=== PATIENT | male | born 1950 | race Caucasian/White ===

== ENCOUNTER → 2019-03-03 | Outpatient (CLI) | payer MEDICARE ==
[~2019-03-03] MED LIST: ASPIRIN325 MG PO; ASPIRIN81 MG PO; CENTRUM MULTIV1 EACH PO; IOPAMIDOL 370 MG/ML 200 ML INFUS..BTL INJ ONE; LIVER CARE PO; METOPROLOL TART25 MG PO; NITROGLYCERIN0.4 MG SL; PLAVIX75 MG PO; SAW PALMETTO PO; SIMVASTATIN40 MG PO; SODIUM CHLORIDE 0.9% 50ML 50 ML ONE; VASOTEC5 MG PO
[2019-03-03 14:14] LABS: BLOOD UREA NITROGEN 10 mg/dL (7-26); BUN/CREATININE RATIO 11 (6-25); CREATININE, SERUM 0.87 mg/dL (0.72-1.25); EST GLOMERULAR FILTRATION RATE > 60 ML/MIN (60-)
--- NOTE | 2019-03-03 19:34 | Diagnostic Imaging Report ---
EXAMINATION: Multiphasic CT of the abdomen with contrast. TECHNIQUE: Spiral CT images of the abdomen were performed from the lung bases to the mid abdomen after the intravenous administration of 100 cc of Isovue 370. Coronal and sagittal reformatted images were obtained. COMPARISON: None. CLINICAL HISTORY:Reported history of right kidney lesion DISCUSSION: ABDOMEN/PELVIS: LOWER THORAX:Unremarkable. HEPATOBILIARY: Numerous hepatic hypodensities, the largest in the left hepatic lobe does not enhance and measures 18 mm consistent with a cyst. The remaining hypodensities do not show definite enhancement and also statistically likely represent cysts. No intra or extrahepatic biliary ductal dilation. GALLBLADDER: No radio-opaque stones or sludge. No wall thickening. SPLEEN: No splenomegaly. PANCREAS: No focal masses or ductal dilatation. ADRENALS: No adrenal nodules. KIDNEYS/URETERS: Multiple bilateral renal hypodensities measuring fluid density. None these hypodensities enhance within the limitations of the study. These are consistent with simple cysts. No hydronephrosis. No renal calculi. PELVIC ORGANS/BLADDER: The bladder is normal. PERITONEUM/RETROPERITONEUM: No free air or fluid. LYMPH NODES: No intra-abdominal, retroperitoneal, pelvic or inguinal lymphadenopathy. VESSELS: The celiac trunk,superior and inferior mesenteric and bilateral renal arteries are patent The portal, superior mesenteric and splenic veins are patent. Mild aneurysmal dilatation of the infrarenal abdominal aorta measuring up to 3.3 cm with mural thrombus. 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 GI TRACT: No distention or wall thickening. BONES AND SOFT TISSUE: No bony destructive lesions. No soft tissue abnormalities. Probable severe canal stenosis at L5-S1 two-view large posterior disc osteophyte. IMPRESSION: 1. No concerning enhancing renal or hepatic lesions. 2. 3.3 cm infrarenal abdominal aortic aneurysm. 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 Signed by: Layton Curtis MD on 03/03/2019 7:31 PM
== END ==
LOC: CT 13:23
PROVIDERS: ATTEND Urology
DX: D41.00 Neoplasm of uncertain behavior of unspecified kidney (principal)
CPT/HCPCS: 36415; 74170; 82565; 84520; Q9967

== ENCOUNTER → 2019-12-04 | Day surgery (SDC) | payer MEDICARE ==
[2019-12-02 10:24] LABS: BASOPHILS % 0.4 % (0.0-1.0); EOSINOPHILS # (AUTO) 0.1 (0.0-0.4); EOSINOPHILS % 1.3 % (0.0-6.0); HEMOGLOBIN 14.1 g/dL (14.0-18.0); LYMPHOCYTES # (AUTO) 1.5 (1.0-3.2); LYMPHOCYTES % 19.8 % (18.0-39.1); MEAN CORPUSCULAR HEMOGLOBIN 29.6 pg (28-32); MEAN CORPUSCULAR HGB CONC 33.6 g/dL (31-35); MEAN CORPUSCULAR VOLUME 88.1 fL (81-99); MONOCYTES # (AUTO) 0.7 (0.2-0.8); MONOCYTES % 9.4 % (4.4-11.3); NEUTROPHILS # (AUTO) 5.1 (2.1-6.9); PLATELET COUNT 207 x10e3/uL (140-360); RED BLOOD COUNT 4.77 x10e6/uL (4.3-5.7)
[~2019-12-04] MED LIST changes: +COQ-10100 MG PO; +CURCUMIN1 GM PO; +CYCLOBENZAPRINE10 MG PO; +EFFIENT10 MG PO; +FLOMAX0.4 MG PO; +GARLIPURE600 MG PO; -IOPAMIDOL 370 MG/ML 200 ML INFUS..BTL INJ ONE; +LIDOCAINE HCL 2% LOCAL INJ 5 ML SDV VIAL INJ ONE; +OMEGA DHA92 MG PO; +PROPOFOL IV EMULSION 10 MG/ML 50 ML VIAL ONE; -SODIUM CHLORIDE 0.9% 50ML 50 ML ONE; +VITAMIN D32400 UNIT/; +VITAMIN D35000 UNI2 PO; +VITAMIN E400 UNI1 PO; +ZINC SULFATE220 M1 PO
--- OUTSIDE RECORDS SUMMARY | 2019-12-04 05:58 | XMS REPORT | Summary of Care ---
Author Author [facility] Organization [facility] Address Unknown Phone Unavailable Care Team Providers Care Heating Equipment Repairer Name Role Phone Madeline Yi MD PCP Reason for Referral * Radiology Services (Routine) Referred By Contact Referred To Contact Status Reason Specialty Diagnoses / Procedures Angelito Griffiths MD [address] [place] [address] Pending Cardiology Diagnoses Undiagnosed cardiac murmurs P rocedures ECHO, COMPLETE Reason for Visit * Reason Comments Coronary Artery Disease Cardiology Follow-up * Consult, Test & Treat (Routine) Referred By Contact Referred To Contact Status Reason Specialty Diagnoses / Procedures [place] Cardio [address] [facility] [address] [facility] 6th [address], [address] [place] [address] Angelito Griffiths MD [address] [place] [address] Incomplete Cardiovascular Diagnoses Disease / Follow up from Cardiology stint placement P rocedures CARDIOLOGY ESTABLISHED OV Encounter Details Care Team Description Date Type Department Angelito Griffiths MD [address] [place] [address] [phone] Coronary Artery Disease; Cardiology Follow-up 11/21/2019 Office Visit [facility] Cardiology [address] [facility] 6th [address], [address] [place] [address] Allergies Comments Active Allergy Reactions Severity Noted Date Seasonal 12/20/2018 documented as of this encounter (statuses as of 11/21/2019) Medications End Date Status Medication Sig Dispensed Refills Start Date Active Tamsulosin HCl 0.4 MG Take 0.4 mg 0 CAPS by mouth. 5 Active cyclobenzaprine Take 10 mg by 0 (FLEXERIL) 10 MG tablet mouth daily. Active Vit Take by 0 E-Grdaivjkektaykg-Pkoy mouth. Hip (VITAMIN C & D3/CATARINO HIPS) 500-1000-20 MG-UNIT-MG CAPS Active Probiotic Product (ALIGN Take by 0 OR) mouth. Active TURMERIC CURCUMIN OR Take by 0 mouth. Active Vitamin E 1000 units CAPS Take by 0 mouth. Active Prasugrel HCl (EFFIENT) Take 10 mg by 90 Tab 3 10 MG TABS mouth daily. 9 Active Calcium Carbonate Take by 0 (CALCIUM 600) 600 MG TABS mouth. Active Coenzyme Q10 (CO Q-10) Take by 0 200 MG CAPS mouth. Active Zinc 50 MG TABS Take by 0 mouth. Active atorvastatin (LIPITOR) 40 Take 1 Tab by 90 Tab 3 MG tabletIndications: mouth daily. 0 Coronary artery disease involving [place] coronary artery of [place] heart without angina pectoris, Essential hypertension, CAD (coronary artery disease) Active aspirin 81 MG Take 1 Tab by 100 Each 3 tabletIndications: mouth daily. 0 Essential hypertension, CAD (coronary artery disease), Coronary artery disease involving [place] coronary artery of [place] heart without angina pectoris 11/21/2019 Discontinued (*Therapy completed) aspirin 81 MG Take 81 mg by 0 tabletIndications: mouth daily. Essential hypertension, CAD (coronary artery disease) 11/21/2019 Discontinued (Reorder) atorvastatin (LIPITOR) 40 Take 1 Tab by 90 Tab 3 MG tablet mouth daily. 8 documented as of this encounter (statuses as of 11/21/2019) Active Problems Problem Noted Date PAD (peripheral artery disease) (HCCode) 06/22/2015 Cerebrovascular disease 05/18/2015 Overview: 1) s/p Carotid angiogram 01/2014: 100 % occlusion of the LICA at the syphon level. 50 % stenosis at the ostium of the LICA and KIMBERLY 2) 100% Occlusion of the Right common iliac. Multiple stenosis of the left common iliac artery by angiogram from 01/2014 CAD (coronary artery disease) 05/18/2015 Overview: 1) s/p Coronary angiogram 02/03/14: s/p PTCA/stent x 2 (2.25 x 30 and 2.25 x 18 mm RESOLUTE stents). HLD (hyperlipidemia) 05/18/2015 S/P hernia repair 05/18/2015 Former smoker 05/18/2015 documented as of this encounter (statuses as of 11/21/2019) Social History Date Tobacco Use Types Packs/Day Years Used Former Smoker Smokeless Tobacco: Never Used Drinks/Week oz/Week Comments Alcohol Use No Sex Assigned at Date Recorded Not on file Industry Job Start Date Occupation Not on file Not on file Not on file Travel End Travel History Travel Start No recent travel history available. documented as of this encounter Last Filed Vital Signs Reading Time Taken Comments Vital Sign 181/78 11/21/2019 9:46 AM FIREWALL ADMINISTRATOR Blood Pressure 73 11/21/2019 9:46 AM FIREWALL ADMINISTRATOR Pulse - - Temperature 16 11/21/2019 9:46 AM FIREWALL ADMINISTRATOR Respiratory Rate 97% 11/21/2019 9:46 AM FIREWALL ADMINISTRATOR Oxygen Saturation - - Inhaled Oxygen Concentration 91.6 kg (202 lb) 11/21/2019 9:46 AM FIREWALL ADMINISTRATOR Weight 188 cm (6' 2") 11/21/2019 9:46 AM FIREWALL ADMINISTRATOR Height 25.94 11/21/2019 9:46 AM FIREWALL ADMINISTRATOR Body Mass Index documented in this encounter Patient Instructions * Patient Instructions* Jn Valdes [facility] - 11/21/2019 9:40 AM FIREWALL ADMINISTRATOR 1. CAD/HLD - Restart Atorvastatin 40mg nightly - Restart taking ASA daily - Participate in moderate intensity exercises such as walking, swimming, aerobic s, etc at least 3-4 times/week - Diet low in fat, carbohydrates, starches, fat. Increase consumption of fruit, vegetables, grains, baked meat, etc.. 2. HTN - Continue to monitor BP at home. To keep a log and bring to clinic during next office visit - Low sodium diet. Less than 1,500mg/1.5grams of sodium daily - Engage in relaxation techniques: Meditation, Yoga 3. Cardiac Murmur - Echocardiogram 4. Follow up in 3 months - 1 week before next appointment to have labs drawn (fasting): CBC, BMP, Lipid p mac, Hepatic function screen WALL ADMINISTRATOR documented in this encounter Progress Notes * Jn Valdes, [facility] - 11/21/2019 9:40 AM FIREWALL ADMINISTRATOR Date: November 21, 2019 Patient Name: Real Gamble : 1950 Problem List: #Subclavian stenosis S/p MOBILE PARAMEDICAL EXAMINER stent to the left subclavian x 2 on 02/03/2019 ASA and effient Statin #CAD s/p PCI on the RCA ASA and effient Statin #PVD s/p MOBILE PARAMEDICAL EXAMINER/Stent of left common iliac on 05/27/2015 S/p right-left femoro-femoral bypass on 06/28/[address] Smith #HTN #HLD #Carotid artery disease S/p Right CEA Chief Complaint: Chief Complaint Patient presents with Coronary Artery Disease Cardiology Follow-up History of Present Illness: Real Gamble is a 69 y.o. male patient with a history of CAD s/p PCI on the RCA, PVD s/p MOBILE PARAMEDICAL EXAMINER/Stent of left common iliac on 05-27-15 and right-left femoro-femoral bypass on 06/28/[address] Smith. He is s/p MOBILE PARAMEDICAL EXAMINER s tent to the left subclavian x 2 on 02/03/2019. Presents to clinic today for his follow up. Per patient he has stopped taking his statin and ASA due to concerns of long term care pharmacist use. He denies any side-effects from medications. No active complai nts of chest pain, SOB, dizziness, palpitations, syncope/near syncopal episodes. Current Medications: Current Outpatient Medications Medication Sig Dispense Refill atorvastatin (LIPITOR) 40 MG tablet Take 1 Tab by mouth daily. (Patient taki ng differently: Take 20 mg by mouth daily.) 90 Tab 3 Calcium Carbonate (CALCIUM 600) 600 MG TABS Take by mouth. Coenzyme Q10 (CO Q-10) 200 MG CAPS Take by mouth. cyclobenzaprine (FLEXERIL) 10 MG tablet Take 10 mg by mouth daily. Prasugrel HCl (EFFIENT) 10 MG TABS Take 10 mg by mouth daily. 90 Tab 3 Probiotic Product (ALIGN OR) Take by mouth. Tamsulosin HCl 0.4 MG CAPS Take 0.4 mg by mouth. TURMERIC CURCUMIN OR Take by mouth. Vit H-Gbnplacnccbpjuk-Vnlk Hip (VITAMIN C & D3/CATARINO HIPS) 500-1000-20 MG-UNIT-MG CAPS Take by mouth. Vitamin E 1000 units CAPS Take by mouth. Zinc 50 MG TABS Take by mouth. No current facility-administered medications for this visit. Allergies: Allergies Allergen Reactions Seasonal Past Medical History: Cerebrovascular Disease PVD Cad (Coronary Artery Disease) Hld (Hyperlipidemia) Carotid Artery Stenosis Past Surgical History: Hernia Repair Carotid angiogram 01/2014: 100 % occlusion of the LICA at the syphon level. 50 % stenosis at the ostium of the LICA and KIMBERLY 100% Occlusion of the Right common iliac. Multiple stenosis of the left common i liac artery by angiogram from 01/2014 Left Common Iliac with 8 x 39mm Alma and 9 x 29mm Alma stents 05/27/15 Coronary angiogram 02/03/14: s/p PTCA/stent RCA x 2 (2.25 x 30 and 2.25 x 18 mm R ESOLUTE stents). Right-Left Femoro-femoral bypass with Hemashield Gold 7mm x 30cm Vascular graft 06-28-2015 Dr. Smith Social History: Social History Tobacco Use Smoking status: Former Smoker Smokeless tobacco: Never Used Substance Use Topics Alcohol use: No Family History: No family history on file. Review of Systems: Constitutional: Negative. HENT: Negative. Eyes: Negative. Respiratory: Negative for shortness of breath. Cardiovascular: Negative Gastrointestinal: Negative for abdominal pain. Genitourinary: Negative. Musculoskeletal: Negative. Skin: Negative. Neurological: Negative. Endo/Heme/Allergies: Negative. Psychiatric/Behavioral: Negative. EXAMINATION BP 181/78 | Pulse 73 | Resp 16 | Ht 6' 2" (1.88 m) | Wt 202 lb (91.6 kg) | SpO2 97% | BMI 25.94 kg/m General appearance: alert, cooperative, no distress, appears stated age Head: Normocephalic, without obvious abnormality, atraumatic Eyes: conjunctivae/corneas clear. PERRL, EOM's intact. Fundi benign Neck: supple, symmetrical, trachea midline, no adenopathy, thyroid: not enlarg ed, symmetric, no tenderness/mass/nodules, no carotid bruit and no JVD Lungs: clear to auscultation bilaterally Heart: Cardiac Murmur. Regular rate and rhythm, S1, S2 normal, systolic murmur at the apex Abdomen: Obese, soft, non-tender. Bowel sounds normal. No masses, No organomeg zaire Extremities: extremities normal, atraumatic, no cyanosis or edema Pulses: 2+ and symmetric Skin: Skin color, texture, turgor normal. No rashes or lesions Neurologic: Normal Laboratory Testing: Ref. Range 06/29/2015 04:30 WBC Latest Range: 4.0-10.0 10^3/L 8.7 RBC Latest Range: 4.20-5.80 10^6/L 3.43 (L) nRBC Latest Range: 0-0 /100 WBC 0 Hemoglobin Latest Range: 13.0-16.8 GM/DL 10.7 (L) Hematocrit Latest Range: 40.0-50.0 % 30.6 (L) MCV Latest Range: 82.0-98.0 fL 89.1 MCH Latest Range: 27.0-33.0 pg 31.1 MCHC Latest Range: 32.0-36.0 GM/DL 34.9 RDW Latest Range: 10.3-14.2 % 11.2 Platelets Latest Range: 150-430 K/CU MM 173 MPV Latest Range: 6.5-10.5 fL 7.1 % Neutros No range found 77 % Lymphs No range found 12 % Monos No range found 11 % Eos No range found 0 % Baso No range found 0 # Neutros Latest Range: 1.80-8.00 K/L 6.65 # Lymphs Latest Range: 1.48-4.50 K/L 1.03 (L) # Monos Latest Range: 0.00-1.30 K/L 0.98 # Eos Latest Range: 0.00-0.50 K/L 0.01 # Baso Latest Range: 0.00-0.20 K/L 0.02 Sodium Latest Range: 136-145 meq/L 133 (L) Potassium Latest Range: 3.5-5.1 meq/L 3.7 Chloride Latest Range: 98-107 meq/L 108 (H) CO2 Latest Range: 22-29 meq/L 20 (L) BUN Latest Range: 7-21 mg/dL 8 Creatinine Latest Range: 0.57-1.25 mg/dL 0.65 EGFR No range found 123 Glucose Latest Range: 70-105 mg/dL 117 (H) Calcium Latest Range: 8.4-10.2 mg/dL 7.2 (L) Echocardiogram: TTE 02/15/2018 SUMMARY: ++++++++++++++++++++++++++++++++++++ Left ventricular chamber size (by PSLAX dimension) is normal. No evidence of LV hypertrophy. The following segment(s) appear hypokinetic: Basal inferolateral/inferior segments Estimated LVEF by qualitative assessment is lower limits of normal (50-55%). In comparison with the prior exam on 2014 the following changes are noted: LVEF has decreased. FINDINGS: ++++++++++++++++++++++++++++++++++++ Rhythm/BP: Regular sinus rhythm during the exam. LV: Global LV systolic function is lower limits of normal. No evidence of LV hypertrophy. Left ventricular chamber size (by PSLAX dimension) is normal. Grade 1 diastolic dysfunction (impaired relaxation and low-normal LA pressure). Estimated LVEF by qualitative assessment is lower limits of normal (50-55%). The following segment(s) appear hypokinetic: Basal inferolateral/inferior segments The other segments contract normally. LA: LA size is normal. RV: The right ventricular chamber size and systolic function are within normal limits. RA: RA cavity size is normal. AV: Mild AoV cusp thickening. No evidence of aortic regurgitation. No evidence of aortic stenosis. MV: Mild MV leaflet thickening. A trace of mitral regurgitation. Mild mitral annular calcification. TV: Normal TV structure and function. A trace of tricuspid regurgitation. Unable to estimate peak systolic PA pressure; inadequate TR velocity signal. PV: Normal PV structure and function. A trace of pulmonary regurgitation. AO: Aortic root size (Sinus of Valsalva diameter) is normal. Proximal ascending aorta size is borderline dilated at 3.5 cm. Pericard: No pericardial effusion is visualized. Systemic Veins: The inferior vena cava size is normal. The estimated RA pressure by IVC dynamics 0-5 mmHg. Comparison: In comparison with the prior exam on 2014 the following changes are noted: LVEF has decreased. Echocardiogram: 05/18/2015 ++++++++++++++++++++++++++++++++++++ SUMMARY: ++++++++++++++++++++++++++++++++++++ Normal chamber size, structure and function No significant valvular abnormality Insufficient amount of TR to allow estimation of PA pressure No prior report for comparison. ++++++++++++++++++++++++++++++++++++ FINDINGS: ++++++++++++++++++++++++++++++++++++ Qual: Fair LV: LV size is normal. Normal LV wall thickness. Sigmoid septum. LV function is normal. Overall wall motion is normal. Estimated EF is 60-65% RV: RV size is normal. RV function is normal. RV wall motion is normal. LA: LA size is normal. RA: RA size is normal. WES: No pericardial effusion seen. AO: Aorta is normal in size. AV: The aortic valve appears normal. MV: Mitral valve appears normal. PV: Not seen. A trace of pulmonic regurgitation. TV: No structural abnormalities noted. Insufficient amount of TR to allow estimation of PA pressure Chandra: LV relaxation is impaired. LV filling pressure is indeterminate (E/e' in 8-12 range). Other: Estimated mean RA pressure is 0-5 mmHg. Stress Testing: PET rest and stress 04/04/2018 IMAGING FINDINGS: Study quality is good. Images obtained after rest and stress injections show normal LV activity. LV and RV volumes appear normal. Gated images obtained at rest and with stress show normal LV wall motion and thickening. LVEF at rest is 52%. LVEF at stress is 66%. IMPRESSION: 1. Normal study. 2. Appropriate pharmacologic stress. 3. Normal myocardial perfusion. 4. Normal resting LV function. No deterioration of function is noted with pharmacologic stress. 5. Normal extracardiac tracer distribution. 6. No previous [facility] study for comparison. NONINVASIVE RISK STRATIFICATION: The above findings are considered low risk (<1% annual mortality rate) based on the following criterion: - Normal or small myocardial perfusion defect at rest or with stress (JACC. 2012;59(9):857-36.) Signed: Manuel Kang MD Report Verified Date/Time: 04/04/2018 15:45:22 Reading Location: [facility] 3rd Flr [id number] [facility] Reading Room 06/2017 Normal myocardial perfusion Cardiac Cath Coronary Angiogram/Abdominal Aortogram 05/27/2015 Findings: Left Main - No angiographic CAD Anterior Descending - Luminal irregularities Cicumflex/OM Branches - Luminal irregularities Right Coronary - Dominant vessel with 30% ostial stenosis, patent prior stent in pRCA Abdominal aortogram revealing an occluded R common iliac artery at the ostium an d a 70% stenosis of the L common iliac artery MOBILE PARAMEDICAL EXAMINER/stent of the L common iliac with a 8 x 39mm Alma and 9 x 29mm Alma obinna nts. Other Testing/Imagning: MOBILE PARAMEDICAL EXAMINER stent of the subclavian 02/03/2019: Procedure Performed: Procedure(s): - Left Subclavian angiography. - IVUS of the left subclavian. - s/p MOBILE PARAMEDICAL EXAMINER/Stent to the proximal left subclavian and distal left subclavian arter y. CTA neck 11/06/2018: 1. Complete occlusion of the left carotid bulb, cervical and intracranial internal carotid arteries. 2. Mild narrowing of the left common carotid artery due to atherosclerotic changes. 3. Complete occlusion of the origin and V1 segments of the right vertebral artery. 4. Focal narrowing and possible web of the left subclavian artery distal to the origin of the left vertebral artery as detailed above. 5. Postoperative changes from prior right carotid endarterectomy with patent vessel. Signed by: Dr. Kylie Hernadez M.D. on 11/07/2018 7:25 AM Carotid doppler 02/15/2018 DUPLEX FINDINGS: Right- There is mild intimal thickening in the distal common carotid artery. The carotid endarterectomy site, internal and external carotid arteries are clear. Color flow is mildly disturbed and velocities are mildly elevated throughout the internal carotid artery. Left- There is heterogenous plaque in the mid to distal common carotid artery. T here hard and calcified plaque in the bulb extending into the internal carotid a rtery with absent color flow and Doppler signals throughout the cervical interna l carotid artery. There is minimal hard plaque in the proximal external carotid artery with normal color flow and Doppler signals. IMPRESSION: -Satisfactory appearance of the right carotid endarterectomy site and internal c arotid artery with no evidence of occlusive disease. Mildly elevated velocities throughout the right internal carotid artery are likely due to compensatory flow in the setting of a chronically occluded left internal carotid artery. -Occluded left internal carotid artery. -Non-stenotic plaque in the left common carotid artery. - Non-stenotic left external carotid artery. - Stenotic left subclavian artery with post-stenotic turbulence noted. Brachial arm pressures demonstrate a difference of 26 mmHg R>L. Arterial doppler BLE 02/15/2018 Duplex Findings: RIGHT- The proximal anastomosis of the right to left femoral to femoral arterial bypass graft is well visualized and is widely patent demonstrating normal color flow and triphasic Doppler waveforms. There is some calcification of the distal common femoral with triphasic Doppler waveforms present. The superficial femor al artery to proximal popliteal artery demonstrates smooth intimal lining with n ormal color flow and triphasic Doppler waveforms. There is non-stenotic hard nita que in the mid popliteal artery with normal color flow and triphasic Doppler wav eforms. There is three-vessel runoff below the knee with normal color flow and t riphasic to biphasic flow throughout the non-calcified arteries.The dorsalis ped is artery is patent as well demonstrating normal color flow and triphasic Dopple r waveforms. LEFT- The distal right to left femoral arterial bypass graft is well visualized and is widely patent demonstrating normal color flow and triphasic Doppler wavef orms. The distal anastomosis to the distal RANGE RIDER/proximal SFA demonstrates some co kristi flow disturbance and elevated velocities of 214 cm/sec, however, Doppler sig nals in the proximal superficial femoral and profunda femoral arteries are bipha sic with normal velocities. Doppler waveforms remain biphasic/near triphasic thr oughout the superficial femoral, popliteal and tibial arteries. There is three-v essel run-off below the knee with a patent dorsalis pedis artery. There is a sma ll focal hard plaque in the mid superficial femoral artery, other smooth intimal lining noted in the remaining visualized arteries. IMPRESSION: 1. Patent right to left femoral to femoral arterial bypass graft with color flow disturbance and elevated velocities of 214 cm/sec at the distal anastomosis (le ft distal common femoral/proximal superificial femoral artery). This appears non -hemodynamically insignificant as distal Doppler waveforms are biphasic to near triphasic. 2. Non-stenotic mild plaque of the right popliteal and left mid superficial femo ral arteries. 3. Bilateral ankle/brachial and toe/brachial indices are normal. Cerebral Angiogram 06-26-15 FINDINGS: The selective right common carotid arteriogram with biplane imaging over the common carotid bifurcation demonstrates 60% stenosis of the right internal carotid artery (NASCET) as part of an approximately 4 cm atherosclerotic plaque originating at the bifurcation of the common carotid artery. There is no angiographic evidence of dissection, aneurysm, or other vascular abnormality. The selective right common carotid arteriogram with biplane imaging over the intracranial carotid circulation demonstrates antegrade flow into the ipsilateral anterior cerebral artery, middle cerebral artery, and with a large anterior communicating artery leading to opacification of the contralateral anterior cerebral artery and middle cerebral artery distribution. The right posterior communicating artery is not visualized. There is a focal stenotic area corresponding to the contralateral left proximal A1 or SANJUANITA-MCA bifurcation. There is no angiographic evidence of aneurysm, vascular malformation, vasculitis, major branch occlusion, dural arteriovenous fistula, or other vascular abnormality. The venous system is within normal limits. The selective right subclavian arteriogram with AP imaging over the chest and proximal branching arteries and with biplane imaging over the cervical and vertebrobasilar circulation demonstrates complete occlusion of the proximal left vertebral artery at the origin with distal reconstitution at the V2 segment from a prominent cervical muscular collateral. The selective left common carotid arteriogram with biplane imaging over the common carotid bifurcation demonstrates complete occlusion of the left internal carotid artery at the common carotid bifurcation with a smooth, rounded cap consistent with chronic occlusion. The left external carotid artery appears to branch normally. There is no angiographic evidence of dissection, aneurysm, or other vascular abnormality. The selective left common carotid arteriogram with biplane imaging over the intracranial carotid circulation demonstrates reconstitution of the intracranial left internal carotid artery via external carotid artery to ophthalmic artery collateralization but with a paucity of opacification of the distal internal carotid artery circulation. There is no angiographic evidence of aneurysm, vascular malformation, vasculitis, dural arteriovenous fistula, or other vascular abnormality. The venous system is within normal limits. The selective left vertebral arteriogram demonstrates normal antegrade flow with basilar artery terminating in bilateral posterior cerebral and superior cerebellar arteries. There is a large left posterior communicating artery with opacification of the left distal middle cerebral artery distribution. There is no angiographic evidence of aneurysm, vascular malformation, vasculitis, major branch occlusion, significant focal stenosis, dural arteriovenous fistula, or other vascular abnormality. SUMMARY: 1. Multiple vessels with severe atherosclerotic disease resulting in the following: Complete occlusion of the cervical left internal carotid and right proximal vertebral artery 60% stenosis of the right internal carotid artery (NASCET) 40% stenosis of the left vertebral artery origin 2. Left cerebral hemisphere perfusion appears to rely on flow from the contralateral internal carotid artery via a large anterior communicating artery along with the left vertebral artery via a large posterior communicating artery. IMPRESSION/PLAN: 1. CAD/HLD - Restart Atorvastatin 40mg nightly - Restart taking ASA daily - Participate in moderate intensity exercises such as walking, swimming, aerobic s, etc at least 3-4 times/week - Diet low in fat, carbohydrates, starches, fat. Increase consumption of fruit, vegetables, grains, baked meat, etc.. 2. HTN - Continue to monitor BP at home. To keep a log and bring to clinic during next office visit - Low sodium diet. Less than 1,500mg/1.5grams of sodium daily - Engage in relaxation techniques: Meditation, Yoga 3. Cardiac Murmur - Echocardiogram 4. Follow up in 3 months - 1 week before next appointment to have labs drawn (fasting): CBC, BMP, Lipid p mac, Hepatic function screen Jn Valdes, MSN, FISH HATCHERY MANAGER, GRANTS AND CONTRACTS ASSISTANT-C Nurse Practitioner/Instructor Office: Nurse Practitioner to Dr. Angelito Griffiths MD Interventional Cardiology and Structural Heart Disease [facility] WALL ADMINISTRATOR documented in this encounter Plan of Treatment Date/Time Name Type Priority Associated Diagnoses 11/21/2019 9:50 AM FIREWALL ADMINISTRATOR ELECTROCARDIOGRAM ECG Routine Coronary artery disease COMPLETE involving [place] coronary artery of [place] heart without angina pectoris Order Schedule Name Type Priority Associated Diagnoses Expected: 11/21/2019, Expires: 05/21/2020 ECHO, COMPLETE Cardiac Routine Undiagnosed cardiac Services murmurs Ordered: 11/21/2019 CBC W/AUTO DIFF WITH Lab Routine Coronary artery disease PLATELETS involving [place] coronary artery of [place] heart without angina pectoris Essential hypertension CAD (coronary artery disease) Ordered: 11/21/2019 BASIC METABOLIC PANEL Lab Routine Coronary artery disease involving [place] coronary artery of [place] heart without angina pectoris Essential hypertension CAD (coronary artery disease) Ordered: 11/21/2019 LIPID PANEL Lab Routine Coronary artery disease involving [place] coronary artery of [place] heart without angina pectoris Essential hypertension CAD (coronary artery disease) Ordered: 11/21/2019 HEPATIC FUNCTION PANEL Lab Routine Coronary artery disease involving [place] coronary artery of [place] heart without angina pectoris Essential hypertension CAD (coronary artery disease) Health Maintenance Due Date Last Done Comments COLON CANCER SCREENIN1948 COLONOSCOPY TETANUS SHOT (ADULT) 1963 BMI FOLLOW UP PLAN 1966 HEPATITIS C SCREENING 1966 AAA Screen 2013 FALL SCREEN 2013 PNEUMOVAX >=65 (PPSV23) 2013 PREVNAR >=65 (PCV13) 2013 FLU VACCINE > 6 MONTHS 04/24/2019 MEDICARE IPPE (WELCOME TO 11/20/2019 MEDICARE) documented as of this encounter Procedures Comments Procedure Name Priority Date/Time Associated Diagnosis ELECTROCARDIOGRAM Routine 11/21/2019 Coronary artery disease COMPLETE 9:50 AM FIREWALL ADMINISTRATOR involving [place] coronary artery of [place] heart without angina pectoris documented in this encounter Results Not on filedocumented in this encounter Visit Diagnoses Diagnosis Coronary artery disease involving [place] coronary artery of [place] heart without angina pectoris - Primary Essential hypertension Unspecified essential hypertension CAD (coronary artery disease) Coronary atherosclerosis of unspecified type of vessel, [place] or graft Undiagnosed cardiac murmurs documented in this encounter Insurance Type Payer Benefit Subscriber ID Effective Phone Address Plan / Dates Group Medicare [employer] AARP MCR xxxxxxxxx 2019- [address] Present [address] [facility] [place] [address] documented as of this encounter
--- OUTSIDE RECORDS SUMMARY | 2019-12-04 05:58 | XMS REPORT ---
Author [facility] Address Unknown Phone Unavailable Care Team Providers Care Social And Political Studies Professor Name Role Phone SHEILA MAURO Unavailable Unavailable CHRISTINE JULIAN Unavailable Unavailable Payers Payer Name Policy Type Policy Number Effective Date Expiration Date Problems This patient has no known problems. Allergies, Adverse Reactions, Alerts Allergy Name Allergy Type Status Severity Reaction(s) Onset Date Inactive Date Treating Clinician Comments No Known Allergies DA Active U 2017-06-27 00:00:00 Medications This patient has no known medications. Results Test Description Test Time Test Comments Text Results Atomic Results Result Comments CT ABDOMEN WOW 2019-03-03 19:25:00 [place] [address] Patient Name: JUAN LUIS CONTEH MR #: [id number] : 1950 Age/Sex: 68/M Req #: [id number] Adm Physician: Ordered by: SHEILA MAURO MD Report #: [id number] Location: [place] Room/Bed: Procedure: [id number] CT/CT ABDOMEN WOW Exam Date: 03/03/19 Exam Time: 1440 REPORT STATUS: Signed EXAMINATION: Multiphasic CT of the abdomen with contrast. TECHNIQUE: Spiral CT images of the abdomen were performed from the lung bases to the mid abdomen after the intravenous administration of 100 cc of Isovue 370. Coronal and sagittal reformatted images were obtained. COMPARISON: None. CLINICAL HISTORY:Reported history of right kidney lesion DISCUSSION: ABDOMEN/PELVIS: LOWER THORAX:Unremarkable. HEPATOBILIARY: Numerous hepatic hypodensities, the largest in the left hepatic lobe does not enhance and measures 18 mm consistent with a cyst. The remaining hypodensities do not show definite enhancement and also statistically likely represent cysts. No intra or extrahepatic biliary ductal dilation. GALLBLADDER: No radio-opaque stones or sludge. No wall thickening. SPLEEN: No splenomegaly. PANCREAS: No focal masses or ductal dilatation. ADRENALS: No adrenal nodules. KIDNEYS/URETERS: Multiple bilateral renal hypodensities measuring fluid density. None these hypodensities enhance within the limitations of the study. These are consistent with simple cysts. No hydronephrosis. No renal calculi. PELVIC ORGANS/BLADDER: The bladder is normal. PERITONEUM/RETROPERITONEUM: No free air or fluid. LYMPH NODES: No intra-abdominal, retroperitoneal, pelvic or inguinal lymphadenopathy. VESSELS: The celiac trunk,superior and inferior mesenteric and bilateral renal arteries are patent The portal, superior mesenteric and splenic veins are patent. Mild aneurysmal dilatation of the infrarenal abdominal aorta measuring up to 3.3 cm with mural thrombus. 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 GI TRACT: No distention or wall thickening. BONES AND SOFT TISSUE: No bony destructive lesions. No soft tissue abnormalities. Probable severe canal stenosis at L5-S1 two-view large posterior disc osteophyte. IMPRESSION: 1. No concerning enhancing renal or hepatic lesions. 2. 3.3 cm infrarenal abdominal aortic aneurysm. 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 Signed by: Layton Curtis MD on 03/03/2019 7:31 PM Dictated By: REESE CURTIS MD 30 Transcribed By: ARGENIS on 03/03/191930 COPY TO: SHEILA MAURO MD BASIC METABOLIC PANEL 2019-02-04 05:47:00 SODIUM (BEAKER) (test amry=938) 136 meq/L 136-145 POTASSIUM (BEAKER) (test ybis=560) 4.4 meq/L 3.5-5.1 CHLORIDE (BEAKER) (test wurp=373) 104 meq/L 98-107 CO2 (BEAKER) (test cpxw=833) 28 meq/L 22-29 BLOOD UREA NITROGEN (BEAKER) (test gadu=919) 13 mg/dL 7-21 CREATININE (BEAKER) (test bkqj=851) 0.93 mg/dL 0.57-1.25 GLUCOSE RANDOM (BEAKER) (test wgli=468) 119 mg/dL 70-105 CALCIUM (BEAKER) (test gfjq=740) 8.8 mg/dL 8.4-10.2 EGFR (BEAKER) (test ijlk=6119) 80 mL/min/1.73 sq m ESTIMATED GFR IS NOT ACCURATE CREATININE CLEARANCE IN PREDICTING GLOMERULAR FILTRATION RATE. ESTIMATED GFR IS NOT APPLICABLE FOR DIALYSIS PATIENTS. CBC (HEMOGRAM ONLY)2019-02-04 05:16:00* Test Item Value Reference Range Comments WHITE BLOOD CELL COUNT (BEAKER) (test mzyz=731) 9.6 K/ L 3.5-10.5 RED BLOOD CELL COUNT (BEAKER) (test cwpm=136) 4.11 M/ L 4.63-6.08 HEMOGLOBIN (BEAKER) (test fbqz=890) 12.1 GM/DL 13.7-17.5 HEMATOCRIT (BEAKER) (test sjnw=467) 37.1 % 40.1-51.0 MEAN CORPUSCULAR VOLUME (BEAKER) (test yrtc=428) 90.3 fL 79.0-92.2 MEAN CORPUSCULAR HEMOGLOBIN (BEAKER) (test kwsi=409) 29.4 pg 25.7-32.2 MEAN CORPUSCULAR HEMOGLOBIN CONC (BEAKER) (test arsa=772) 32.6 GM/DL 32.3-36.5 RED CELL DISTRIBUTION WIDTH (BEAKER) (test kefn=545) 12.2 % 11.6-14.4 PLATELET COUNT (BEAKER) (test shcw=950) 178 K/CU MM 150-450 MEAN PLATELET VOLUME (BEAKER) (test jcnj=270) 10.2 fL 9.4-12.4 NUCLEATED RED BLOOD CELLS (BEAKER) (test jxcy=223) 0 /100 WBC 0-0 [id number] 18:13:00* Test Item Value Reference Range Comments ACTIVATED CLOTTING TIME (BEAKER) (test mbuy=103) 136 sec TESTED AT [facility] [address] [facility] [address] [id number] 12:53:00* Test Item Value Reference Range Comments ACTIVATED CLOTTING TIME (BEAKER) (test krnk=697) 307 sec TESTED AT [place] [id number] [facility] [address] BASIC METABOLIC [id number] 08:00:00* Test Item Value Reference Range Comments SODIUM (BEAKER) (test bluv=102) 140 meq/L 136-145 POTASSIUM (BEAKER) (test kkym=900) 4.8 meq/L 3.5-5.1 CHLORIDE (BEAKER) (test szgu=527) 105 meq/L 98-107 CO2 (BEAKER) (test tupq=260) 30 meq/L 22-29 BLOOD UREA NITROGEN (BEAKER) (test wkmp=234) 11 mg/dL 7-21 CREATININE (BEAKER) (test tfgp=009) 0.90 mg/dL 0.57-1.25 GLUCOSE RANDOM (BEAKER) (test qwpy=348) 112 mg/dL 70-105 CALCIUM (BEAKER) (test lqbt=602) 9.9 mg/dL 8.4-10.2 EGFR (BEAKER) (test hslc=6255) 83 mL/min/1.73 sq m ESTIMATED GFR IS NOT ACCURATE CREATININE CLEARANCE IN PREDICTING GLOMERULAR FILTRATION RATE. ESTIMATED GFR IS NOT APPLICABLE FOR DIALYSIS PATIENTS. PROTHROMBIN TIME/[id number] 07:50:00* Test Item Value Reference Range Comments PROTIME (BEAKER) (test wiwc=696) 12.8 seconds 11.7-14.7 INR (BEAKER) (test mmsu=648) 1.0 <=5.9 RECOMMENDED COUMADIN/WARFARIN INR THERAPY RANGESSTANDARD DOSE: 2.0 - 3.0 Inclu ziggy: PROPHYLAXIS for venous thrombosis, systemic embolization; TREATMENT for ada ous thrombosis and/or pulmonary embolus.HIGH RISK: Target INR is 2.5-3.5 for pat ients with mechanical heart valves.Within 24 hours, if on CoumadinCBC (HEMOGRAM ONLY)2019-02-03 07:43:00* Test Item Value Reference Range Comments WHITE BLOOD CELL COUNT (BEAKER) (test obyv=723) 6.3 K/ L 3.5-10.5 RED BLOOD CELL COUNT (BEAKER) (test qsjr=483) 4.38 M/ L 4.63-6.08 HEMOGLOBIN (BEAKER) (test qrbs=036) 12.9 GM/DL 13.7-17.5 HEMATOCRIT (BEAKER) (test xhqi=862) 39.5 % 40.1-51.0 MEAN CORPUSCULAR VOLUME (BEAKER) (test bwlr=593) 90.2 fL 79.0-92.2 MEAN CORPUSCULAR HEMOGLOBIN (BEAKER) (test nzun=389) 29.5 pg 25.7-32.2 MEAN CORPUSCULAR HEMOGLOBIN CONC (BEAKER) (test eqxy=881) 32.7 GM/DL 32.3-36.5 RED CELL DISTRIBUTION WIDTH (BEAKER) (test filt=057) 12.3 % 11.6-14.4 PLATELET COUNT (BEAKER) (test gpkj=511) 192 K/CU MM 150-450 MEAN PLATELET VOLUME (BEAKER) (test hwso=840) 9.5 fL 9.4-12.4 NUCLEATED RED BLOOD CELLS (BEAKER) (test gckf=991) 0 /100 WBC 0-0 - US ABDOMEN [id number] 11:14:00 Name: JUAN LUIS CONTEH [facility] : 1950 Age/S: 68 / M [address] Unit #: [id number] Loc: [place] [address] Phys: Madeline Yi MD Acct: [id number] Dis Date: Status: REG CLI PHONE #: [phone] Exam Date: 01/24/2019 1035 FAX #: [phone] Reason: R10.11 EXAMS: CPT CODE: [id number] US ABDOMEN COMPLETE 12382 HISTORY: R10.11. COMPARISON: None available. The liver is diffusely hyperechogenic suggesting diffuse fibrofatty infiltration which limited evaluation for intrahepatic mass however septated complex cyst in the right lobe measured 3 cm. Subcentimeter cyst is too small to characterize on the left side measuring 4.8 mm. Third cyst measured 1.1 cm. The liver measuring 14 cm in length. No intra or extrahepatic biliary ductal dilatation. CBD is normal at 2.4 mm. Main portal vein is patent with hepatopedal flow and normal spectral waveform. Gallbladder is without gallstones. No pericholecystic fluid or wall thickening. No ascites. Kidneys are free from hydronephrosis and calyceal stones. Normal echogenicity and texture. Right renal cortical atrophy. Right kidney measured 10.3 cm in length. Left kidney measured 11.3 cm in length. Bosniak 2 lesion with debris in the interpolar region measured 1.5 cm. Spleen is not enlarged at 9.4 cm in length. Visualized portions of the IVC, aorta and pancreas are normal however imaged incompletely. IMPRESSION: No gallstones. Fibrofatty infiltrated liver with complex cyst on the right measuring 3 cm. Smaller cyst on the left side. Unremarkable spleen. Kidneys are free from hydronephrosis with cortical atrophy on the right and Bosniak 2 lesion with debris on the left in the interpolar region measuring 1.5 cm. at 1114 Reported and signed by: Philipp Scruggs M.D. CC: Solomon hnologist: JOSE GUADALUPE LIZARRAGA(R),MAHOGANY Trnwyb Date/Ti me: 01/24/2019 (1114) [email or web address] Orig Print D/T: S: 2018 (1117) Probe: PAGE 1 Kerline d Report BASIC METABOLIC [id number] 09:45:00 * Test Item Value Reference Range Comments SODIUM (BEAKER) (test iwst=848) 139 meq/L 136-145 POTASSIUM (BEAKER) (test ktro=689) 3.7 meq/L 3.5-5.1 CHLORIDE (BEAKER) (test yxre=709) 102 meq/L 98-107 CO2 (BEAKER) (test ycji=588) 30 meq/L 22-29 BLOOD UREA NITROGEN (BEAKER) (test cfhz=022) 11 mg/dL 7-21 CREATININE (BEAKER) (test mzsr=837) 0.92 mg/dL 0.57-1.25 GLUCOSE RANDOM (BEAKER) (test giad=167) 104 mg/dL 70-105 CALCIUM (BEAKER) (test zhhf=733) 9.2 mg/dL 8.4-10.2 EGFR (BEAKER) (test kaok=5197) 81 mL/min/1.73 sq m ESTIMATED GFR IS NOT ACCURATE CREATININE CLEARANCE IN PREDICTING GLOMERULAR FILTRATION RATE. ESTIMATED GFR IS NOT APPLICABLE FOR DIALYSIS PATIENTS. PROTHROMBIN TIME/[id number] 09:37:00* Test Item Value Reference Range Comments PROTIME (BEAKER) (test zatw=027) 13.1 seconds 11.7-14.7 INR (BEAKER) (test jayz=701) 1.0 <=5.9 RECOMMENDED COUMADIN/WARFARIN INR THERAPY RANGESSTANDARD DOSE: 2.0 - 3.0 Inclu ziggy: PROPHYLAXIS for venous thrombosis, systemic embolization; TREATMENT for ada ous thrombosis and/or pulmonary embolus.HIGH RISK: Target INR is 2.5-3.5 for pat ients with mechanical heart valves.Within 24 hours, if on CoumadinCBC (HEMOGRAM ONLY)2019-01-16 09:30:00* Test Item Value Reference Range Comments WHITE BLOOD CELL COUNT (BEAKER) (test iwed=529) 8.8 K/ L 3.5-10.5 RED BLOOD CELL COUNT (BEAKER) (test thzw=179) 4.59 M/ L 4.63-6.08 HEMOGLOBIN (BEAKER) (test tyej=308) 13.4 GM/DL 13.7-17.5 HEMATOCRIT (BEAKER) (test kcdw=797) 41.2 % 40.1-51.0 MEAN CORPUSCULAR VOLUME (BEAKER) (test keks=591) 89.8 fL 79.0-92.2 MEAN CORPUSCULAR HEMOGLOBIN (BEAKER) (test bqha=281) 29.2 pg 25.7-32.2 MEAN CORPUSCULAR HEMOGLOBIN CONC (BEAKER) (test myjx=367) 32.5 GM/DL 32.3-36.5 RED CELL DISTRIBUTION WIDTH (BEAKER) (test eyhq=651) 12.2 % 11.6-14.4 PLATELET COUNT (BEAKER) (test zvcf=974) 189 K/CU MM 150-450 MEAN PLATELET VOLUME (BEAKER) (test oswo=363) 9.6 fL 9.4-12.4 NUCLEATED RED BLOOD CELLS (BEAKER) (test xcdo=193) 0 /100 WBC 0-0 PET, CARDIAC PERFUSION MULTIPLE STUDIES, REST AND [id number] 15:45:00 Reason for Exam:->I25.10FINAL REPORT PROCEDURE: Rest/Stress MYOCARDIAL PERFUSION PET with regadenoson\XA9\ CPT CODE: 31826 INDICATION: Atherosclerotic heart disease of [place] coronary artery HISTORY: Cardiac risk factors: Hypertension, hyperlipidemia, PVD. Other cardiovascular history: Known CAD, coronary stent 2014. Recent cardiac symptoms: None reported. Current cardiovascular-related medications: Metoprolol, enalapril. PROTOCOL: Limited low-dose CT imaging was performed for attenuation correction. 40.1 mCi of Rb-82 chloride was injected iv at rest, and gated PET (positron emission tomography) images were obtained. Subsequently, 40.0 mCi of Rb-82 chloride was injected iv at expected peak pharmacologic effect, and gated PET images were obtained. PRELIMINARY STRESS TEST DATA FROM NONINVASIVE CARDIOLOGY: Pharmacologic stress was by 10-second iv infusion of 0.4 mg of regadenoson. Radiotracer was injected 30 seconds after start of stress. Heart rate was 63 beats/min at rest and 77 beats/min (50% of MPHR) at tracer injection. BP was 121/90 mmHg at rest and 79/55 mmHg at tracer injection. Stress was stopped for predetermined endpoint. The patient experienced no s ymptoms; treatment was not required. Preliminary ECG evaluation revealed normal sinus rhythm, PVC at rest and no ischemic changes with stress. (Final ECG interp retation and other stress and monitoring data are reported separately by Cardiol ogy.) IMAGING FINDINGS: Study quality is good. Images obtained after rest a nd stress injections show normal LV activity. LV and RV volumes appear normal. G ated images obtained at rest and with stress show normal LV wall motion and thic kening. LVEF at rest is 52%. LVEF at stress is 66%. IMPRESSION: 1. Normal st udy. 2. Appropriate pharmacologic stress. 3. Normal myocardial perfusion. 4. Normal resting LV function. No deterioration of function is noted with pharmacol ogic stress. 5. Normal extracardiac tracer distribution. 6. No previous [facility] study for comparison. NONINVASIVE RISK STRATIFICATION: The above findings are considered low risk (<1% annual mortality rate) based on the following criterion:- Normal or small myocardial perfusion defect at rest or with stress(JACC. 2012;59(9):857-81.) Signed: Manuel Kang Verified Date/Time: 04/04/2018 15:45:22 Reading Location: [address] Reading Room
[2019-12-04 08:25] VITALS: BP 143/81
== END | disposition home or self-care (01) ==
LOC: OR 05:48
PROVIDERS: ATTEND Internal Medicine Gastroenterology
DX: Z12.11 Encounter for screening for malignant neoplasm of colon (principal); Z86.010 Personal history of colon polyps; I10 Essential (primary) hypertension; E66.3 Overweight; Z68.25 Body mass index [BMI] 25.0-25.9, adult; K21.9 Gastro-esophageal reflux disease without esophagitis; I73.9 Peripheral vascular disease, unspecified; Z87.891 Personal history of nicotine dependence; K57.30 Diverticulosis of large intestine without perforation or abscess without bleeding; K64.8 Other hemorrhoids
CPT/HCPCS: 36415; 45378; 85025; 93005; J2001; J2704